=== PATIENT | male | born 1960 | race Caucasian/White ===

== ENCOUNTER 2016-09-18 08:58 | Inpatient (IN) | payer MEDICARE, OTHER ==
[~2016-09-18] VITALS: Ht 185.4 cm; Wt 104.8 kg
[~2016-09-18 08:58] MED LIST: AMLO10TA2 PO; ASPI81TA2 PO; BLOO-697 IN; DICL75TA5 PO; INSU100C7 SQ; INSU100V11 SQ; METF500T4 PO; METO10TA3 PO; OLME20TA15 PO; OMEP40CA37 PO; SERT25TA PO; SIMV20TA6 PO; TAMS0.4C34 PO
[2016-09-18] MEDS ORDERED: IPRATROPIUM NEB FS 0.5 MG/2.5 ML AMPUL.NEB NEB ONE (09:30)
[2016-09-18] MEDS ORDERED: ALBUTEROL FS 2.5 MG/0.5 ML VIAL.NEB NEB ONE (09:30)
[2016-09-18 09:40] LABS: BASOPHILS % (AUTO) 0.1 % (0.0-2.0); DIFF TOTAL % 100 %; EOSINOPHILS # (AUTO) 0.1 /CMM (0.0-0.7); EOSINOPHILS % (AUTO) 1.9 % (0.0-6.0); HEMATOCRIT 35 % (39-51); HEMOGLOBIN 11.4 g/dL (13.5-17.5); LYMPHOCYTES # (AUTO) 1.6 /CMM (0.8-4.8); LYMPHOCYTES % (AUTO) 20.8 % (20.0-44.0); MEAN CORPUSCULAR HEMOGLOBIN 30 PG (26.0-33.0); MEAN CORPUSCULAR HGB CONC 32 g/dl (31.0-36.0); MEAN CORPUSCULAR VOLUME 91 fL (80-96); MONOCYTES # (AUTO) 0.9 /CMM (0.1-1.30); MONOCYTES % (AUTO) 12.1 % (2.0-12.0); NEUTROPHILS # (AUTO) 5.1 /CMM (1.8-8.9); NEUTROPHILS % (AUTO) 65.1 % (43.0-81.0); PLATELET COUNT (AUTO) 488 /CMM (150-450); RED BLOOD CELL COUNT(AUTO) 3.86 MIL/uL (4.5-6.0); WHITE BLOOD COUNT (AUTO) 7.8 K/uL (4.3-11.0)
[2016-09-18 09:55] LABS: TROPONIN I 0.02 ng/mL (0.00-0.056)
[2016-09-18 09:58] LABS: INR 0.99 (0.87-1.13); PROTHROMBIN TIME 10.7 SECS (9.5-12.7)
[2016-09-18 09:59] LABS: ALBUMIN 1.6 g/dL (3.4-5.0); BILIRUBIN,DIRECT 0.1 mg/dL (0.0-0.2); BILIRUBIN,TOTAL 0.4 mg/dL (0.2-1.0); CALCIUM, SERUM 8.1 mg/dL (8.5-10.1); CREATININE 0.8 mg/dL (0.6-1.3); INDIRECT BILIRUBIN 0.3 mg/dL (0.0-1.1); POTASSIUM 3.7 mmol/L (3.5-5.1); TOTAL PROTEIN, SERUM 5.6 g/dL (6.4-8.2)
[2016-09-18] MEDS ORDERED: ALBUTEROL FS 2.5 MG/3 ML VIAL.NEB ONE (10:09)
[2016-09-18] MEDS ORDERED: IPRATROPIUM NEB FS 0.5 MG/2.5 ML AMPUL.NEB ONE (10:09)
[2016-09-18] MEDS ORDERED: FUROSEMIDE 40 MG/4 ML VIAL IV ONE (10:30)
[2016-09-18] MEDS ORDERED: FUROSEMIDE 40 MG/4 ML VIAL ONE (10:36)
[2016-09-18] MEDS ORDERED: LORA10TA7 PO (10:58)
[2016-09-18] MEDS ORDERED: [UNRECOGNIZED DRUG - CODE] PO (11:03)
[2016-09-18] MEDS ORDERED: CHOL100044 PO (11:03)
[2016-09-18] MEDS ORDERED: PEG15DRO4 EACHEYE (11:03)
[2016-09-18] MEDS ORDERED: OXYM30SP NS (11:03)
[2016-09-18] MEDS ORDERED: TIOT4MIS3 IH (11:03)
[2016-09-18] MEDS ORDERED: AMOX500C2 PO (11:03)
[2016-09-18] MEDS ORDERED: LINA5TAB PO (11:03)
[2016-09-18] MEDS ORDERED: ACET-2605 PO (11:03)
[2016-09-18 13:30] VITALS: BP 159/96
[2016-09-18 16:00] VITALS: BP 149/85
[2016-09-18] MEDS ORDERED: GUAIFENESIN 300 MG/15 ML UDC PO PRN (16:00)
[2016-09-18] MEDS ORDERED: METOCLOPRAMIDE HCL 10 MG TABLET PO PRN (16:00)
[2016-09-18] MEDS ORDERED: ACETAMINOPHEN 325 MG TABLET PO PRN (16:30)
[2016-09-18] MEDS ORDERED: ZOLPIDEM TARTRATE 5 MG TABLET PO PRN (16:30)
[2016-09-18] MEDS ORDERED: BUMETANIDE INJ 8 MG in IV NS 0.9% 48 ML IV ONE (16:30)
[2016-09-18] MEDS ORDERED: ONDANSETRON HCL/PF 4 MG/2 ML VIAL IVP PRN (16:30)
[2016-09-18] MEDS ORDERED: Z GUARD REMEDY 2 OZ OINT TP PRN (16:30)
[2016-09-18] MEDS ORDERED: ALBUMIN 25% 12.5 GM/50 ML BOTTLE IV ONE (16:30)
[2016-09-18] MEDS ORDERED: IV SET PRIMARY PUMP SET 1 EA INFUS.SET MC ONE (16:38)
[2016-09-18] MEDS: ENOXAPARIN SODIUM 40 MG/0.4 ML DISP.SYRIN SQ SCH (16:56)
[2016-09-18] MEDS: METFORMIN 500 MG TABLET PO SCH (16:57)
[2016-09-18] MEDS: BLOOD SUGAR DIAGNOSTIC 1 EACH STRIP IN SCH ×2 (16:59→22:30)
[2016-09-18] MEDS ORDERED: ALBUMIN 25% 25 GM in PREMIX 1 EA IV SCH (17:00)
[2016-09-18] MEDS: INSULIN LISPRO/ASPART 100 UNIT/ML CARTRIDGE SQ SCH (17:38)
[2016-09-18] MEDS: SIMVASTATIN 20 MG TABLET PO SCH (17:43)
[2016-09-18] MEDS: OXYMETAZOLINE HCL NASAL SPRAY 30 ML BOTTLE NS SCH (17:44)
[2016-09-18] MEDS ORDERED: ALBUMIN 25% 50 GM in PREMIX 1 EA IV ONE (18:30)
[2016-09-18] MEDS ORDERED: ALBUMIN 25% 50 GM in PREMIX 1 EA IV SCH (19:00)
[2016-09-18 20:00] VITALS: BP 136/84
[2016-09-18] MEDS ORDERED: SECONDARY IV SET 1 EA INFUS.SET MC ONE (22:27)
[2016-09-18] MEDS: INSULIN GLARGINE, 100 UNIT/ML CARTRIDGE SQ SCH (22:43)
[2016-09-19] VITALS: BP 163/95
[2016-09-19 04:00] VITALS: BP 187/104
[2016-09-19] MEDS: HYDROCODONE/APAP 10/325MG 1 EA TABLET PO PRN ×3 (05:50→19:55)
[2016-09-19 06:36] LABS: BASOPHILS % (AUTO) 0.1 % (0.0-2.0); DIFF TOTAL % 100 %; EOSINOPHILS # (AUTO) 0.1 /CMM (0.0-0.7); EOSINOPHILS % (AUTO) 0.7 % (0.0-6.0); HEMATOCRIT 35 % (39-51); HEMOGLOBIN 11.5 g/dL (13.5-17.5); LYMPHOCYTES % (AUTO) 13.1 % (20.0-44.0); MEAN CORPUSCULAR HEMOGLOBIN 30 PG (26.0-33.0); MEAN CORPUSCULAR HGB CONC 33 g/dl (31.0-36.0); MEAN CORPUSCULAR VOLUME 91 fL (80-96); MONOCYTES # (AUTO) 0.7 /CMM (0.1-1.30); NEUTROPHILS # (AUTO) 6.1 /CMM (1.8-8.9); NEUTROPHILS % (AUTO) 77.1 % (43.0-81.0); PLATELET COUNT (AUTO) 480 /CMM (150-450); RED BLOOD CELL COUNT(AUTO) 3.89 MIL/uL (4.5-6.0)
[2016-09-19] MEDS: OXYMETAZOLINE HCL NASAL SPRAY 30 ML BOTTLE NS SCH ×2 (06:54→17:04)
[2016-09-19] MEDS: BLOOD SUGAR DIAGNOSTIC 1 EACH STRIP IN SCH ×3 (06:54→17:01)
[2016-09-19] MEDS: INSULIN LISPRO/ASPART 100 UNIT/ML CARTRIDGE SQ SCH ×3 (06:58→17:03)
[2016-09-19 07:06] LABS: ALBUMIN 2.4 g/dL (3.4-5.0); BILIRUBIN,TOTAL 0.8 mg/dL (0.2-1.0); CALCIUM, SERUM 8.7 mg/dL (8.5-10.1); CREATININE 0.8 mg/dL (0.6-1.3); PHOSPHORUS 4.1 mg/dL (2.5-4.9); TOTAL PROTEIN, SERUM 6.4 g/dL (6.4-8.2)
[2016-09-19 07:10] LABS: THYROID STIMULATING HORMONE 1.093 uIU/mL (0.358-3.74)
[2016-09-19 08:00] VITALS: BP 141/79
[2016-09-19] MEDS: LORATADINE 10 MG TABLET PO SCH (08:51)
[2016-09-19] MEDS: TAMSULOSIN 0.4 MG CAP.SR.24H PO SCH (08:51)
[2016-09-19] MEDS: CHOLECALCIFEROL 1,000 UNIT TABLET (VIT D3) PO SCH (08:51)
[2016-09-19] MEDS: ASPIRIN 81 MG TAB.CHEW PO SCH (08:51)
[2016-09-19] MEDS: PANTOPRAZOLE 40 MG TABLET.DR PO SCH (08:51)
[2016-09-19] MEDS: SERTRALINE HCL 25 MG TABLET PO SCH (08:51)
[2016-09-19] MEDS: METFORMIN 500 MG TABLET PO SCH ×2 (08:51→17:02)
[2016-09-19] MEDS: AMLODIPINE BESYLATE 10 MG TABLET PO SCH (08:52)
[2016-09-19] MEDS ORDERED: LOSARTAN POTASSIUM 50 MG TABLET PO SCH (09:00)
[2016-09-19] MEDS ORDERED: IV NS 0.9% 250 ML IV ONE (10:36)
[2016-09-19] MEDS ORDERED: SECONDARY IV SET 1 EA INFUS.SET MC ONE (10:37)
[2016-09-19] MEDS ORDERED: POTASSIUM CHLORIDE 20 MEQ TAB.PRT.SR PO SCH (11:00)
[2016-09-19] MEDS ORDERED: BUMETANIDE INJ 8 MG in IV NS 0.9% 48 ML IV ONE (11:00)
[2016-09-19] MEDS ORDERED: hydrALAZINE HCL 25 MG TABLET PO PRN (12:30)
[2016-09-19 13:35] LABS: KETONES,URINE NEGATIVE (NEGATIVE); LEUKOCYTE ESTERASE ,URINE NEGATIVE (NEGATIVE)
[2016-09-19 14:36] LABS: ADD UA MICROSCOPIC YES
[2016-09-19 15:47] LABS: ADD URINE CULTURE NO; RBC,URINE 0-2 /HPF (0-2); WBC,URINE 0-2 /HPF (0-3)
[2016-09-19 16:00] VITALS: BP 147/93
[2016-09-19] MEDS: SIMVASTATIN 20 MG TABLET PO SCH (17:01)
[2016-09-19] MEDS: LOSARTAN POTASSIUM 50 MG TABLET PO SCH (17:02)
[2016-09-19] MEDS: ENOXAPARIN SODIUM 40 MG/0.4 ML DISP.SYRIN SQ SCH (17:03)
[2016-09-19 20:00] VITALS: BP 151/95
[2016-09-19] MEDS: INSULIN GLARGINE, 100 UNIT/ML CARTRIDGE SQ SCH (22:10)
[2016-09-20] MEDS ORDERED: MORPHINE SULFATE INJ 2 MG/ML DISP.SYRIN ONE (00:52)
[2016-09-20] MEDS: MORPHINE SULFATE INJ 2 MG/ML DISP.SYRIN IV PRN (01:04)
[2016-09-20] MEDS: BLOOD SUGAR DIAGNOSTIC 1 EACH STRIP IN SCH ×5 (05:12→22:38)
[2016-09-20] MEDS: OXYMETAZOLINE HCL NASAL SPRAY 30 ML BOTTLE NS SCH ×2 (07:00→17:13)
[2016-09-20] MEDS: INSULIN LISPRO/ASPART 100 UNIT/ML CARTRIDGE SQ SCH ×3 (07:30→17:10)
[2016-09-20 08:00] VITALS: BP 141/79
[2016-09-20] MEDS: LOSARTAN POTASSIUM 50 MG TABLET PO SCH ×2 (09:00→16:53)
[2016-09-20] MEDS: LORATADINE 10 MG TABLET PO SCH (09:00)
[2016-09-20] MEDS: METFORMIN 500 MG TABLET PO SCH ×2 (09:00→16:54)
[2016-09-20] MEDS: SERTRALINE HCL 25 MG TABLET PO SCH (09:00)
[2016-09-20] MEDS: CHOLECALCIFEROL 1,000 UNIT TABLET (VIT D3) PO SCH (09:00)
[2016-09-20] MEDS: AMLODIPINE BESYLATE 10 MG TABLET PO SCH (09:00)
[2016-09-20] MEDS: ASPIRIN 81 MG TAB.CHEW PO SCH (09:00)
[2016-09-20] MEDS: TAMSULOSIN 0.4 MG CAP.SR.24H PO SCH (09:00)
[2016-09-20] MEDS: PANTOPRAZOLE 40 MG TABLET.DR PO SCH (09:00)
[2016-09-20] MEDS ORDERED: BUMETANIDE INJ 8 MG in IV NS 0.9% 48 ML IV ONE (09:30)
[2016-09-20 10:26] LABS: BASOPHILS % (AUTO) 0.3 % (0.0-2.0); DIFF TOTAL % 100 %; EOSINOPHILS # (AUTO) 0.1 /CMM (0.0-0.7); EOSINOPHILS % (AUTO) 1.5 % (0.0-6.0); HEMATOCRIT 33 % (39-51); LYMPHOCYTES # (AUTO) 1.3 /CMM (0.8-4.8); LYMPHOCYTES % (AUTO) 16.7 % (20.0-44.0); MEAN CORPUSCULAR HEMOGLOBIN 30 PG (26.0-33.0); MEAN CORPUSCULAR HGB CONC 33 g/dl (31.0-36.0); MEAN CORPUSCULAR VOLUME 90 fL (80-96); MONOCYTES # (AUTO) 0.8 /CMM (0.1-1.30); NEUTROPHILS # (AUTO) 5.3 /CMM (1.8-8.9); NEUTROPHILS % (AUTO) 70.5 % (43.0-81.0); PLATELET COUNT (AUTO) 452 /CMM (150-450); RED BLOOD CELL COUNT(AUTO) 3.71 MIL/uL (4.5-6.0); WHITE BLOOD COUNT (AUTO) 7.5 K/uL (4.3-11.0)
[2016-09-20 10:50] LABS: ALBUMIN 1.9 g/dL (3.4-5.0); BILIRUBIN,TOTAL 0.9 mg/dL (0.2-1.0); CALCIUM, SERUM 8.3 mg/dL (8.5-10.1); CREATININE 0.6 mg/dL (0.6-1.3); PHOSPHORUS 3.9 mg/dL (2.5-4.9); POTASSIUM 4.2 mmol/L (3.5-5.1); TOTAL PROTEIN, SERUM 5.7 g/dL (6.4-8.2)
[2016-09-20] MEDS: POTASSIUM CHLORIDE 20 MEQ TAB.PRT.SR PO SCH ×3 (12:13→14:49)
[2016-09-20 16:00] VITALS: BP 146/83
[2016-09-20] MEDS: ENOXAPARIN SODIUM 40 MG/0.4 ML DISP.SYRIN SQ SCH (16:52)
[2016-09-20] MEDS: SIMVASTATIN 20 MG TABLET PO SCH (16:54)
[2016-09-20 20:00] VITALS: BP 152/93
[2016-09-20] MEDS: INSULIN GLARGINE, 100 UNIT/ML CARTRIDGE SQ SCH (22:38)
[2016-09-21] MEDS ORDERED: Magnesium 1GM/D5W 100ML PREMIX 100 ML IV ONE (06:38)
[2016-09-21] MEDS ORDERED: SECONDARY IV SET 1 EA INFUS.SET MC ONE (06:44)
[2016-09-21] MEDS: Magnesium 1GM/D5W 100ML PREMIX 100 ML IV SCH ×2 (06:45→09:45)
[2016-09-21] MEDS: OXYMETAZOLINE HCL NASAL SPRAY 30 ML BOTTLE NS SCH ×2 (06:54→16:38)
[2016-09-21] MEDS: INSULIN LISPRO/ASPART 100 UNIT/ML CARTRIDGE SQ SCH ×3 (07:23→17:30)
[2016-09-21] MEDS: BLOOD SUGAR DIAGNOSTIC 1 EACH STRIP IN SCH ×3 (07:56→16:38)
[2016-09-21] MEDS: PANTOPRAZOLE 40 MG TABLET.DR PO SCH (07:56)
[2016-09-21 08:00] VITALS: BP 131/69
[2016-09-21 08:09] LABS: *SPE ALBUMIN 2.2 g/dL (2.9-4.4)
[2016-09-21] MEDS: hydrALAZINE HCL 50 MG TABLET PO SCH ×3 (08:53→16:39)
[2016-09-21] MEDS: CHOLECALCIFEROL 1,000 UNIT TABLET (VIT D3) PO SCH (08:54)
[2016-09-21] MEDS: METFORMIN 500 MG TABLET PO SCH ×2 (08:54→16:30)
[2016-09-21] MEDS: TAMSULOSIN 0.4 MG CAP.SR.24H PO SCH (08:54)
[2016-09-21] MEDS: LORATADINE 10 MG TABLET PO SCH (08:54)
[2016-09-21] MEDS: SERTRALINE HCL 25 MG TABLET PO SCH (08:54)
[2016-09-21] MEDS: ASPIRIN 81 MG TAB.CHEW PO SCH (08:54)
[2016-09-21] MEDS: AMLODIPINE BESYLATE 10 MG TABLET PO SCH (08:55)
[2016-09-21] MEDS: LOSARTAN POTASSIUM 50 MG TABLET PO SCH ×2 (08:55→16:30)
[2016-09-21] MEDS ORDERED: POTASSIUM CHLORIDE 20 MEQ TAB.PRT.SR PO SCH (09:00)
[2016-09-21] MEDS ORDERED: FUROSEMIDE 80 MG TABLET PO SCH (09:00)
[2016-09-21 09:18] LABS: DIFF TOTAL % 100 %; EOSINOPHILS # (AUTO) 0.1 /CMM (0.0-0.7); EOSINOPHILS % (AUTO) 1.3 % (0.0-6.0); HEMATOCRIT 35 % (39-51); HEMOGLOBIN 11.4 g/dL (13.5-17.5); LYMPHOCYTES % (AUTO) 12.4 % (20.0-44.0); MEAN CORPUSCULAR HEMOGLOBIN 30 PG (26.0-33.0); MEAN CORPUSCULAR HGB CONC 32 g/dl (31.0-36.0); MEAN CORPUSCULAR VOLUME 91 fL (80-96); MONOCYTES # (AUTO) 0.7 /CMM (0.1-1.30); MONOCYTES % (AUTO) 9.3 % (2.0-12.0); NEUTROPHILS # (AUTO) 6.2 /CMM (1.8-8.9); PLATELET COUNT (AUTO) 467 /CMM (150-450); RED BLOOD CELL COUNT(AUTO) 3.84 MIL/uL (4.5-6.0); WHITE BLOOD COUNT (AUTO) 8.1 K/uL (4.3-11.0)
[2016-09-21 09:31] LABS: ALBUMIN 1.9 g/dL (3.4-5.0); CALCIUM, SERUM 8.4 mg/dL (8.5-10.1); CREATININE 0.7 mg/dL (0.6-1.3); PHOSPHORUS 3.4 mg/dL (2.5-4.9); POTASSIUM 4.4 mmol/L (3.5-5.1); TOTAL PROTEIN, SERUM 5.8 g/dL (6.4-8.2)
[2016-09-21] MEDS: MORPHINE SULFATE INJ 2 MG/ML DISP.SYRIN IV PRN (13:59)
[2016-09-21 16:00] VITALS: BP 124/81
[2016-09-21] MEDS: ENOXAPARIN SODIUM 40 MG/0.4 ML DISP.SYRIN SQ SCH (16:30)
[2016-09-21 16:39] VITALS: BP 124/81
[2016-09-21] MEDS: SIMVASTATIN 20 MG TABLET PO SCH (17:47)
[2016-09-21] MEDS ORDERED: INSULIN DETEMIR 100 UNIT/ML CARTRIDGE SQ SCH (22:00)
[2016-09-22 01:11] LABS: VIT D, 25-HYDROXY 16.9 ng/mL (30.0-100.0)
== END 2016-09-21 19:10 | DRG 291 ==
LOC: ER 09:04 → TELE 12:38 → MED 09-19 11:53
PROVIDERS: ADMIT Nurse Practitioner Acute Care; ATTEND Nurse Practitioner Acute Care
DX: I11.0 Hypertensive heart disease with heart failure (principal); E43 Unspecified severe protein-calorie malnutrition; Z68.1 Body mass index [BMI] 19.9 or less, adult; J98.11 Atelectasis; R18.8 Other ascites; I50.33 Acute on chronic diastolic (congestive) heart failure; I25.10 Atherosclerotic heart disease of native coronary artery without angina pectoris; E11.40 Type 2 diabetes mellitus with diabetic neuropathy, unspecified; F31.9 Bipolar disorder, unspecified; G62.9 Polyneuropathy, unspecified; Z87.891 Personal history of nicotine dependence; R13.10 Dysphagia, unspecified; E11.622 Type 2 diabetes mellitus with other skin ulcer; L98.499 Non-pressure chronic ulcer of skin of other sites with unspecified severity; Z79.4 Long term (current) use of insulin
CPT/HCPCS: 36415; 71100-TC; 80048-TC; 80053-TC; 80061-TC; 80076-TC; 81000-TC; 82306; 82728-TC; 82962-TC; 83540-TC; 83735-TC; 83880; 84100-TC; 84155; 84165; 84439-TC; 84443-TC; 84484-TC; 85025-TC; 85730-TC; 87081-TC; 92611-TC; 93307-TC; 93970-TC; 94799-TC; A4216; A4606; A6402; A6403; J1650; J1815; J1940; J2270; J3475; J3490; J7050; P9047; Z7610